=== PATIENT | male | born 1970 | race Hispanic/Latino ===

== ENCOUNTER 2019-10-05 | Emergency (ER) | payer SELFPAY ==
[2019-10-05] MEDS ORDERED: AMOXICILLIN500 MG PO (20:38)
== END 2019-10-05 20:56 | disposition home or self-care (01) | DRG 914 ==
PROC: 0HQFXZZ Repair Right Hand Skin, External Approach (ICD-10-PCS; principal; 2019-10-05)
DX: S61.441A Puncture wound with foreign body of right hand, initial encounter (principal); I10 Essential (primary) hypertension; W45.8XXA Other foreign body or object entering through skin, initial encounter; Y93.H3 Activity, building and construction; Y92.89 Other specified places as the place of occurrence of the external cause; Y99.0 Civilian activity done for income or pay; Z89.021 Acquired absence of right finger(s)